=== PATIENT | male | born 1945 | race Caucasian/White ===

== ENCOUNTER 2020-10-09 11:30 | Outpatient (CLI) | payer MEDICARE, BC | END 2020-10-09 23:59 | disposition home or self-care (01) | LOC: MSC 11:30 | PROVIDERS: ATTEND Internal Medicine | DX: K29.70 Gastritis, unspecified, without bleeding (principal); R42 Dizziness and giddiness; R00.1 Bradycardia, unspecified; E78.5 Hyperlipidemia, unspecified; R73.02 Impaired glucose tolerance (oral); Z86.39 Personal history of other endocrine, nutritional and metabolic disease; N41.1 Chronic prostatitis; N52.9 Male erectile dysfunction, unspecified; N40.0 Benign prostatic hyperplasia without lower urinary tract symptoms; Z80.0 Family history of malignant neoplasm of digestive organs; Z80.3 Family history of malignant neoplasm of breast; Z83.2 Family history of diseases of the blood and blood-forming organs and certain disorders involving the immune mechanism; Z71.89 Other specified counseling; Z79.899 Other long term (current) drug therapy ==